=== PATIENT | female | born 1925 | race Hispanic/Latino ===

== ENCOUNTER 2017-10-04 13:04 | Emergency (ER) | payer MEDICARE ==
[2017-10-04 13:04] VITALS: BMI 25.4
[2017-10-04 13:18] VITALS: TEMP 97.9
--- NOTE | 2017-10-04 13:41 | ED PDOC ---
Arrival/HPI - General Chief Complaint: Upper Extremity Problem/Injury Time Seen by Provider: 10/04/17 13:28 Historian: Patient - History of Present Illness Associated Symptoms (Text): 10/04/17 13:38 89 yo F presents to the ER with her daughter for bruising to the L arm. Patient reports no trauma or injury she can recall. Patient is not on any anticoagulants , but does take a baby ASA everyday. Denies any numbness, decrease in ROM, pain. Has no other complaints. Past Medical History - Infectious Disease Hx of Infectious Diseases: None - Tetanus Immunization Tetanus Immunization: Unknown - Cardiac Hx Cardiac Disorders: No - Pulmonary Hx Respiratory Disorders: No - Neurological Hx Neurological Disorder: No - HEENT Hx HEENT Disorder: No - Renal Hx Renal Disorder: No - Endocrine/Metabolic Hx Endocrine Disorders: No - Hematological/Oncological Hx Blood Disorders: No - Integumentary Hx Dermatological Disorder: No - Musculoskeletal/Rheumatological Hx Musculoskeletal Disorders: No - Gastrointestinal Hx Gastrointestinal Disorders: No - Genitourinary/Gynecological Hx Genitourinary Disorders: No - Psychiatric Hx Depression: No Hx Emotional Abuse: No Hx Physical Abuse: No Hx Substance Use: No - Suicidal Assessment Feels Threatened In Home Enviroment: No Family/Social History Family/Social History: No Known Family HX Smoking Status: Never Smoked Hx Alcohol Use: No Hx Substance Use: No Hx Substance Use Treatment: No Allergies/Home Meds Allergies/Adverse Reactions: Allergies No Known Allergies Allergy (Verified 10/04/17 13:18) Home Medications: Home Meds Medication Instructions Recorded Confirmed No Known Home Med 10/04/17 10/04/17 Review of Systems - Review of Systems Constitutional: absent: Fatigue, Fevers Musculoskeletal: absent: Arthralgias, Back Pain, Neck Pain, Joint Swelling Skin: Other (burising to the L arm). absent: Rash, Pruritis, Skin Lesions Physical Exam Vital Signs Temp Pulse Resp BP Pulse Ox 10/04/17 13:19 97.9 F 102 H 19 139/84 97 10/04/17 13:18 97.9 F 113 H 17 139/84 95 Pain Distress: None Mental Status: Positive for: Alert and Oriented X 3 - Systems Exam Head: Present: Atraumatic, Normocephalic Neck: Present: Normal Range of Motion. No: MIDLINE TENDERNESS, Paraspinal Tenderness Back: Present: Normal Inspection. No: Midline Tenderness, Paraspinal Tenderness Upper Extremity: Present: Normal ROM, NORMAL PULSES, Swelling (+mild edema and ecchymosis to the L arm), Neurovascularly Intact, Capillary Refill < 2s, Norm 2- Pt Discrimination. No: Tenderness, Erythema, Temperature Abnormalties Neurological: Present: GCS=15, CN II-XII Intact, Speech Normal, Motor Func Grossly Intact, Normal Sensory Function Skin: Present: Warm, Dry, Normal Color. No: Rashes Psychiatric: Present: Alert, Oriented x 3 Medical Decision Making ED Course and Treatment: 10/04/17 13:42 89 yo F with a hematoma to the L arm. XR L humerus : no fracture, no dislocation, as read by PA. XR results d/w the patient and her daughter. Advised to apply warm compresses to the area. Advised to follow up with primary care physician in 1-2 days without fail. Return to the emergency room at any time for any new or worsening symptoms. Patient states she fully agrees with and understands discharge instructions. States that she agrees with the plan and disposition. Verbalized and repeated discharge instructions and plan. I have given the patient opportunity to ask any additional questions. - RAD Interpretation Radiology Orders: 10/04/17 13:38 HUMERUS LEFT [RAD] Stat - PA / PRINCIPAL SECRETARY / Resident Statement MD/DO has reviewed & agrees with the documentation as recorded. Disposition/Present on Arrival - Present on Arrival Any Indicators Present on Arrival: No History of DVT/PE: No History of Uncontrolled Diabetes: No Urinary Catheter: No History of Decub. Ulcer: No History Surgical Site Infection Following: None - Disposition Have Diagnosis and Disposition been Completed?: Yes Diagnosis: Hematoma Disposition Time: 14:15 Patient Plan: Discharge Patient Problems: Current Active Problems Problem Status Onset Hematoma Acute Condition: STABLE Discharge Instructions (ExitCare): Contusion (DC) Additional Instructions: Thank you for letting us take care of you today. You were treated for hematoma. The emergency medical care you received today was directed at your acute symptoms. Apply warm compresses to the area. It may take several days for your symptoms to resolve. Return to the Emergency Department if your symptoms worsen , do not improve, or if you have any other problems. Please contact your doctor in 2 days for re-evaluation and follow up. Bring any paperwork you were given at discharge with you along with any medications you are taking to your follow up visit. Our treatment cannot replace ongoing medical care by a primary care provider (PCP) outside of the emergency department. Thank you for allowing the [facility] team to be part of your care today. Forms: [employer] (Armenian)
[2017-10-04 15:02] VITALS: BP 139/80; PULSE 91; RESP 18; O2SAT 98
--- NOTE | 2017-10-04 15:03 | RAD ---
PROCEDURE: Radiographs of the left humerus. HISTORY: pain COMPARISON: None. FINDINGS: BONES: No acute fracture or destructive bony lesion identified. Note, the left humeral head essentially articulates with the acromion likely from rotator cuff injury on a chronic basis. SOFT TISSUES: As above. OTHER FINDINGS: None. IMPRESSION: No acute fracture or destructive bony lesion left humerus. Advanced left shoulder degenerative changes are appreciate including subluxation of the left humeral head to articulate with the acromion. This likely reflects gross rotator cuff disruption on a chronic basis. MRI can be utilized for greater characterization.
== END 2017-10-04 15:05 | disposition home or self-care (01) ==
LOC: ED 13:04
DX: S40.022A Contusion of left upper arm, initial encounter (principal); X58.XXXA Exposure to other specified factors, initial encounter